=== PATIENT | male | born 1995 | race Caucasian/White ===

== ENCOUNTER 2021-03-06 12:44 | Emergency (ER) | payer OTHER ==
[2021-03-06] MEDS ORDERED: ANUSOL-HC25 MG PR (13:46)
[2021-03-06] MEDS ORDERED: IBUPROFEN600 MG PO (13:46)
[2021-03-06] MEDS ORDERED: MIRALAX17 GM PO (13:46)
== END 2021-03-06 14:27 | disposition home or self-care (01) ==
LOC: ER1 12:44
DX: K64.5 Perianal venous thrombosis (principal); F17.210 Nicotine dependence, cigarettes, uncomplicated
CPT/HCPCS: 99282

== ENCOUNTER 2021-09-27 12:42 | Emergency (ER) | payer OTHER ==
[~2021-09-27 12:42] MED LIST: ANUSOL-HC25 MG PR; IBUPROFEN600 MG PO; MIRALAX17 GM PO
[2021-09-28] MEDS ORDERED: HYDROCODON-ACE1 EAC4 PO (23:31)
== END 2021-09-27 17:38 | disposition home or self-care (01) ==
LOC: ER1 12:42
DX: S93.402A Sprain of unspecified ligament of left ankle, initial encounter (principal); F17.210 Nicotine dependence, cigarettes, uncomplicated; V49.50XA Passenger injured in collision with unspecified motor vehicles in traffic accident, initial encounter; Y92.410 Unspecified street and highway as the place of occurrence of the external cause
CPT/HCPCS: 73562; 73590; 73610; 73700; 96372; 99284; J1885

== ENCOUNTER 2021-09-28 23:06 | Emergency (ER) | payer OTHER ==
[2021-09-28] MEDS ORDERED: HYDROCODON-ACE1 EAC4 PO (23:31)
== END 2021-09-28 23:50 | disposition home or self-care (01) ==
LOC: ER1 23:06
DX: S82.892A Other fracture of left lower leg, initial encounter for closed fracture (principal); F17.200 Nicotine dependence, unspecified, uncomplicated; X58.XXXA Exposure to other specified factors, initial encounter
CPT/HCPCS: 29515; 99283

== ENCOUNTER → 2022-02-14 | Outpatient (CLI) | payer OTHER ==
[~2022-02-14] MED LIST changes: +HYDROCODON-ACE1 EAC4 PO
== END ==
LOC: KOH-I 09:58
DX: M25.572 Pain in left ankle and joints of left foot (principal)
CPT/HCPCS: 72100; 73610